=== PATIENT | female | born 1995 | race African-American/Black ===

== ENCOUNTER 2018-03-15 18:02 | Emergency (ER) | payer OTHER ==
[~2018-03-15] VITALS: Ht 167.6 cm; Wt 59.0 kg
--- NOTE | 2018-03-15 18:06 | ED.ADGEN ---
Past History Past Medical History: GERD Adult General Chief Complaint Chief Complaint "My shoulder is hurting me... (Rt. 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 Pain has been interment. No recent hx of trauma. Some localization with ROM and isolation of rotatory cuff muscles. No recent travel, ill contacts. No hx of fever. No problems with defecation or urination. Pt. normally follow s at [facility]. Pt. is rated 8/10 when most severe. Pt. is right hand dominate. Materials Coordinator equal. Distal neurovascular equal to lt. hand. Review of Systems Review of Systems Constitutional: Denies fever or chills [] Eyes: Denies change in visual acuity, redness, or eye pain [] HENT: Denies nasal congestion or sore throat [] Respiratory: Denies cough or shortness of breath [] Cardiovascular: No additional information not addressed in HPI [] GI: Denies abdominal pain, nausea, vomiting, bloody stools or diarrhea [] : Denies dysuria or hematuria [] Musculoskeletal: Denies back pain or joint pain []Except findings of Lt. shoulder and neck. Integument: Denies rash or skin lesions [] Neurologic: Denies headache, focal weakness or sensory changes [] Endocrine: Denies polyuria or polydipsia [] All other systems were reviewed and found to be within normal limits, except as documented in this note. Family History Family History Non-contributory Current Medications Current Medications Current Medications Medications (Trade) Dose Ordered Sig/Argenis Start Time Stop Time Status Last Admin Dose Admin Ketorolac Tromethamine (Toradol Im) 60 mg 1X ONCE 03/15/18 19:15 03/15/18 19:16 DC 03/15/18 19:37 60 MG Allergies Allergies Allergies Coded Allergies Type Severity Reaction Last Updated Verified No Known Drug Allergies 03/15/18 No Physical Exam Physical Exam Constitutional: Well developed, well nourished, no acute distress, non-toxic appearance. [] HENT: Normocephalic, atraumatic, bilateral external ears normal, oropharynx moist, no oral exudates, nose normal. [] Eyes: PERRLA, EOMI, conjunctiva normal, no discharge. [] Neck: Normal range of motion, no tenderness, supple, no stridor. [] Rt. Trapezius tenderness. Cardiovascular:Heart rate regular rhythm, no murmur [] Lungs & Thorax: Bilateral breath sounds clear to auscultation [] Abdomen: Bowel sounds normal, soft, no tenderness, no masses, no pulsatile masses. [] Skin: Warm, dry, no erythema, no rash. [] Back: No tenderness, no CVA tenderness. [] Extremities: No tenderness, no cyanosis, no clubbing, ROM intact, no edema. [] Except findings in Rt. shoulder. Neurologic: Alert and oriented X 3, normal motor function, normal sensory function, no focal deficits noted. [] Psychologic: Affect anxious, judgement normal, mood normal. [] Current Patient Data Vital Signs Vital Signs Date Time Temp Pulse Resp B/P (MAP) Pulse Ox O2 Delivery O2 Flow Rate FiO2 03/15/18 20:55 77 16 126/78 (94) 100 Room Air 03/15/18 18:20 98.8 Lab Results Laboratory Tests Test 03/15/18 18:13 POC Urine HCG, Qualitative hcg negative (Negative) EKG EKG [] Radiology/Procedures Radiology/Procedures My interpretation of shoulder shows no acute fx. or dislocation. No finding DJD. Pt. Ct cervical some DJD, but not acute fx. or dislocation. See formal report when available. ] Course & Med Decision Making Course & Med Decision Making Pertinent Labs and Imaging studies reviewed. (See chart for details) Pt. to take Ibuprofen 400 up 4 x day with food for pain. Must follow up with orthro at [place]. Return if any concerns. Copy CT given to pt. to take to [facility]. [] Final Impression Final Impression 1. Rt. []Shoulder Pain- suspect Rotator cuff 2. Cervical Neuropathy- DJD Dragon Disclaimer Dragon Disclaimer This electronic medical record was generated, in whole or in part, using a voice recognition dictation system. KEKE GAXIOLA MD Mar 15, 2018 18:06
[2018-03-15] MEDS ORDERED: KETOROLAC 60 MG/2 ML VIAL. IM ONE (19:15)
--- NOTE | 2018-03-15 19:33 | RAD ---
PQRS Compliance statement: One or more of the following individualized dose reduction techniques were utilized for this examination: 1. Automated exposure control. 2. Adjustment of the mA and/or kV according to patient size. 3. Use of iterative reconstruction technique. Indication:Right sided radiculopathy TECHNIQUE: CT of the cervical spine without IV contrast with multiplanar reformats. COMPARISON:None FINDINGS: Cervical spine is in normal anatomic alignment. Atlantoaxial joint interval is preserved. No compression deformities. Facet joints are in normal anatomic alignment. No no acute fractures. No intervertebral disc space narrowing or endplate sclerosis and osteophytosis. Segmental analysis: C2-C3: Mild circumferential disc bulge flattening intrathecal sac. No facet arthropathy. No neuroforamina narrowing. C3-C4: No symmetric and disc bulge or herniation. No facet arthropathy. No neuroforamina narrowing. C4-C5: No specimen disc bulge or herniation. No facet arthropathy. No neuroforamina narrowing. C5-C6: No disc bulge or herniation. No facet arthropathy. No neuroforamina narrowing. C6-C7: No disc bulge or herniation. No facet arthropathy. No neuroforamina narrowing. Clear lung apices. The noncontrast sections through the visualized neck soft tissues is within normal limits. IMPRESSION: 1. No acute fractures. 2. No evidence of degenerative disc disease or facet arthropathy. Electronically signed by: Alexis Mendez DO (03/15/2018 7:30 PM) [facility]
[2018-03-15] MEDS ORDERED: IBUP400T18 PO (20:38)
[2018-03-15 20:55] VITALS: BP 126/78
--- NOTE | 2018-03-15 21:27 | RAD ---
Indication: Right-sided shoulder pain TECHNIQUE: 2 views of the right shoulder COMPARISON: None FINDINGS: No acute fracture or". Clinical data joints are intact. Visualized right lung is clear. No soft tissue abnormality. IMPRESSION: No acute findings. No degenerative changes. Electronically signed by: Alexis Mendez DO (03/15/2018 9:24 PM) [facility]
== END 2018-03-15 20:55 | disposition home or self-care (01) ==
LOC: ER 18:02
DX: M47.812 Spondylosis without myelopathy or radiculopathy, cervical region (principal); M25.511 Pain in right shoulder; K21.9 Gastro-esophageal reflux disease without esophagitis
CPT/HCPCS: 72125; 73030; 81025; 96372; 99284; J1885